=== PATIENT | female | born 1940 | race Caucasian/White ===

== ENCOUNTER → 2019-05-02 | Outpatient (CLI) | payer MEDICARE, BC ==
[~2019-05-02] MED LIST: CLONIDINE0.1 PO; COUMADIN 1MG TAB1 M1 PO; HYDROCODON-ACE1 EAC7 PO; NOVOLOG100 UNIT/1 SUBQ; PRINIVIL10 MG PO
[2019-05-02 08:12] LABS: PROTIME 10.3 Seconds (9.20-11.50)
== END ==
LOC: M.LAB 07:38
PROVIDERS: Anesthesiology
DX: E11.9 Type 2 diabetes mellitus without complications (principal); R79.1 Abnormal coagulation profile